=== PATIENT | male | born 1950 | race Two or more races ===

== ENCOUNTER 2017-11-13 07:56 | Day surgery (SDC) | payer OTHER | END 2017-11-13 12:20 | disposition home or self-care (01) | LOC: AMB-ENDOS 07:56 | DX: D12.4 Benign neoplasm of descending colon (principal); D12.8 Benign neoplasm of rectum; D12.5 Benign neoplasm of sigmoid colon ==

== ENCOUNTER 2019-01-07 08:16 | Day surgery (SDC) | payer OTHER | END 2019-01-07 10:00 | disposition home or self-care (01) | LOC: AMB-ENDOS 08:16 → EDBD 13:00 → AMB-ENDOS 13:00 | DX: K64.8 Other hemorrhoids (principal) ==